=== PATIENT | female | born 1990 | race American Indian/Alaskan Native ===

== ENCOUNTER 2018-07-12 16:05 | Emergency (ER) | payer OTHER ==
[2018-07-12 16:15] VITALS: BP 167/108
[2018-07-12] MEDS ORDERED: IBUPROFEN PO ONE (16:38)
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
[2018-07-12] MEDS ORDERED: BOOSTRIX IM ONE (17:44)
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
== END 2018-07-12 18:18 | disposition home or self-care (01) ==
LOC: ED 16:05
DX: S39.012A Strain of muscle, fascia and tendon of lower back, initial encounter (principal); S46.911A Strain of unspecified muscle, fascia and tendon at shoulder and upper arm level, right arm, initial encounter; S66.911A Strain of unspecified muscle, fascia and tendon at wrist and hand level, right hand, initial encounter; S50.11XA Contusion of right forearm, initial encounter; I10 Essential (primary) hypertension; J45.909 Unspecified asthma, uncomplicated; E11.9 Type 2 diabetes mellitus without complications; Z86.2 Personal history of diseases of the blood and blood-forming organs and certain disorders involving the immune mechanism; Z90.89 Acquired absence of other organs; Z88.5 Allergy status to narcotic agent; Z88.0 Allergy status to penicillin; V89.2XXA Person injured in unspecified motor-vehicle accident, traffic, initial encounter; Y93.89 Activity, other specified; Y92.488 Other paved roadways as the place of occurrence of the external cause; Y99.8 Other external cause status
CPT/HCPCS: 72100; 90471; 90715; 99283

== ENCOUNTER 2019-09-18 01:37 | Emergency (ER) | payer OTHER, BC ==
--- NOTE | 2019-09-18 02:32 | XRay Report ---
CHEST 1 VIEW 09/18/2019 2:20 AM INDICATION / CLINICAL INFORMATION: Chest Pain. COMPARISON: None available. FINDINGS: SUPPORT DEVICES: None. HEART / MEDIASTINUM: No significant abnormality. LUNGS / PLEURA: No significant pulmonary or pleural abnormality. No pneumothorax. ADDITIONAL FINDINGS: No significant additional findings. IMPRESSION: 1. No acute findings. Signer Name: Yaritza Maya MD Signed: 09/18/2019 2:28 AM Workstation Name: [id number]
[2019-09-18] MEDS ORDERED: ASPIRIN 325 MG TAB PO ONE (03:59)
[2019-09-18 04:34] LABS: Hematocrit 36.4 % (30.3-42.9); Hemoglobin 11.4 gm/dl (10.1-14.3); Mean Corpuscular HGB Conc 31 % (30-34); Mean Corpuscular Volume 73 fl (79-97); Platelet Count 470 K/mm3 (140-440); Red Blood Count 4.99 M/mm3 (3.65-5.03); Red Cell Distribution Width 19.1 % (13.2-15.2)
[2019-09-18 05:00] LABS: Alanine Aminotransferase 11 units/L (7-56); Albumin 4.3 g/dL (3.9-5); BUN/Creatinine Ratio 23; Blood Urea Nitrogen 16 mg/dL (7-17); Calcium 9.8 mg/dL (8.4-10.2); Hemolysis Index 10
[2019-09-18 05:47] LABS: Basophils % (Manual) 0 % (0.0-1.8); Target Cells Rare; Total Cells Counted 100
[2019-09-18 05:48] LABS: Anisocytosis Few; Burr Cells Rare; Ovalocytes Rare; Platelet Estimate Consistent w Auto; Spherocytes Rare
--- NOTE | 2019-09-18 06:08 | Emergency Department Report ---
ED Chest Pain HPI - General Chief Complaint: Chest Pain Stated Complaint: SOB,SORENESS IN CHEST AND SHOULDER Source: patient Mode of arrival: Ambulatory Limitations: No Limitations - History of Present Illness Initial Comments: Patient is a 29-year-old -[place] female with a history of uan-dcapymo-dkodgjtak diabetes, hypertension and morbid obesity who presents to the ED with complaint of acute onset persistent constant left upper chest wall pain that radiates to the left arm and left shoulder for 12 hours. Patient states that she took anxiety medicine at home prior to arrival and now her pain is well controlled. Patient denies shortness of breath, nausea, vomiting, dizziness, syncope, seizures, headache, sore throat, abdominal pain, diaphoresis, palpitations, change in vision, heavy lifting, traumatic fall or cough. MD Complaint: chest pain (left sided), other (left arm and shoulder pain) -: Sudden, hour(s) (12) Onset: during rest, during exertion, awoke with symptoms Pain Location: left chest Pain Radiation: LUE Severity: mild Severity scale (0 -10): 2 Quality: tightness, sharp Consistency: intermittent Improves With: nothing Worsens With: nothing re: denies: nausea, vomting, diaphoresis, dyspnea, sense of impending doom Other Symptoms: denies: cough, fever, syncope, rash, acid taste in mouth, leg swelling, palpitations, burping Treatments Prior to Arrival: none Aspirin use within the Past 7 Days: (0) No - Related Data On Oral Contraceptives: No Home Medications Medication Instructions Recorded Confirmed Last Taken Norethindrone [Jolivette] 1 tab PO DAILY 11/04/13 11/04/13 11/02/13 13:00 Previous Rx's Medication Instructions Recorded Last Taken Type Ferrous Gluconate [Fergon] 325 mg PO BID #60 tablet 11/04/13 Unknown Rx Cyclobenzaprine [Flexeril] 10 mg PO QHS PRN #10 tablet 07/12/18 Unknown Rx Ibuprofen [Motrin 600 MG tab] 600 mg PO Q8H PRN #20 tablet 09/18/19 Unknown Rx hydrOXYzine PAMOATE [Vistaril] 25 mg PO Q6HR PRN #30 capsule 09/18/19 Unknown Rx Allergies Allergy/AdvReac Type Severity Reaction Status Date / Time codeine Allergy Hives Verified 11/03/13 12:45 Penicillins Allergy Hives Verified 11/03/13 12:44 Heart Score - HEART Score History: Slightly suspicious EKG: Normal Age: < 45 Risk factors: 1-2 risk factors Troponin: < normal limit HEART Score: 1 - Critical Actions Critical Actions: 0-3 pts:0.9-1.7%risk of adverse cardiac event.Candidate for discharge ED Review of Systems ROS: Stated complaint: SOB,SORENESS IN CHEST AND SHOULDER Other details as noted in HPI Constitutional: denies: chills, fever Eyes: denies: eye pain, eye discharge, vision change ENT: denies: ear pain, throat pain Respiratory: denies: cough, shortness of breath, wheezing Cardiovascular: chest pain (left sided chest pain). denies: palpitations Endocrine: no symptoms reported Gastrointestinal: denies: abdominal pain, nausea, diarrhea Genitourinary: denies: urgency, dysuria, discharge Musculoskeletal: arthralgia (left arm). denies: back pain, joint swelling Skin: denies: rash, lesions Neurological: denies: headache, weakness, paresthesias Psychiatric: denies: anxiety, depression Hematological/Lymphatic: denies: easy bleeding, easy bruising ED Past Medical Hx - Past Medical History Previous Medical History?: Yes Hx Hypertension: Yes Hx Congestive Heart Failure: No Hx Diabetes: Yes Hx Asthma: Yes Hx COPD: No Additional medical history: anemia - Surgical History Past Surgical History?: Yes Additional Surgical History: tonsillectomy - Social History Smoking Status: Never Smoker Substance Use Type: None - Medications Home Medications: Home Medications Medication Instructions Recorded Confirmed Last Taken Type Ferrous Gluconate [Fergon] 325 mg PO BID #60 tablet 11/04/13 Unknown Rx Norethindrone [Jolivette] 1 tab PO DAILY 11/04/13 11/04/13 11/02/13 13:00 History Cyclobenzaprine [Flexeril] 10 mg PO QHS PRN #10 tablet 07/12/18 Unknown Rx Ibuprofen [Motrin 600 MG tab] 600 mg PO Q8H PRN #20 tablet 09/18/19 Unknown Rx hydrOXYzine PAMOATE [Vistaril] 25 mg PO Q6HR PRN #30 capsule 09/18/19 Unknown Rx ED Physical Exam - General Limitations: No Limitations General appearance: alert, in no apparent distress - Head Head exam: Present: atraumatic, normocephalic, normal inspection - Eye Eye exam: Present: normal appearance, PERRL, EOMI Pupils: Present: normal accommodation - ENT ENT exam: Present: normal exam, normal orophraynx, mucous membranes moist, TM's normal bilaterally, normal external ear exam - Neck Neck exam: Present: normal inspection, full ROM. Absent: tenderness, lymphadenopathy - Respiratory Respiratory exam: Present: normal lung sounds bilaterally, chest wall tenderness (Palpable reproducible mild left upper chest wall tenderness). Absent: respiratory distress, wheezes, rales, rhonchi, accessory muscle use, decreased breath sounds, prolonged expiratory - Cardiovascular Cardiovascular Exam: Present: regular rate, normal rhythm, normal heart sounds. Absent: systolic murmur, diastolic murmur, rubs, gallop - GI/Abdominal GI/Abdominal exam: Present: soft, normal bowel sounds. Absent: distended, tend erness, guarding, rebound, hyperactive bowel sounds, hypoactive bowel sounds, organomegaly - Extremities Exam Extremities exam: Present: normal inspection, full ROM, normal capillary refill - Back Exam Back exam: Present: normal inspection, full ROM. Absent: tenderness, CVA tenderness (R), CVA tenderness (L), muscle spasm, paraspinal tenderness - Neurological Exam Neurological exam: Present: alert, oriented X3, CN II-XII intact, normal gait, reflexes normal - Psychiatric Psychiatric exam: Present: normal affect, normal mood - Skin Skin exam: Present: warm, dry, intact, normal color. Absent: rash ED Course Vital Signs 09/18/19 01:45 Temperature 97.9 F Pulse Rate 92 H Respiratory 18 Rate Blood Pressure 144/99 O2 Sat by Pulse 97 Oximetry KEVIN score - Kevin Score Age > 65: (0) No Aspirin use within the Past 7 Days: (0) No 3 or more CAD Risk Factors: (0) No 2 or more Angina events in past 24 hrs: (0) No Known CAD with more than 50% Stenosis: (0) No Elevated Cardiac Markers: (0) No ST Deviation Greater than 0.5mm: (0) No KEVIN Score: 0 ED Medical Decision Making - Lab Data Result diagrams: 09/18/19 04:07 09/18/19 04:07 - EKG Data EKG shows normal: sinus rhythm Rate: normal - EKG Data Interpretation: normal EKG - Radiology Data Radiology results: report reviewed, image reviewed Findings [facility] [address] [place] [address] XRay Report Signed Patient: TRISTEN HERNANDEZ MR#: [id number] : 1990 Acct:[id number] Age/Sex: 29 / F ADM Date: 09/18/19 Loc: ED Attending Dr: Ordering Physician: ALEIDA BECKETT MD Date of Service: 09/18/19 Procedure(s): XR chest 1V ap Accession Number(s): [id number] cc: ALEIDA BECKETT MD Fluoro Time In Minutes: CHEST 1 VIEW 09/18/2019 2:20 AM INDICATION / CLINICAL INFORMATION: Chest Pain. COMPARISON: None available. FINDINGS: SUPPORT DEVICES: None. HEART / MEDIASTINUM: No significant abnormality. LUNGS / PLEURA: No significant pulmonary or pleural abnormality. No pneumothorax. ADDITIONAL FINDINGS: No significant additional findings. IMPRESSION: 1. No acute findings. Signer Name: Yaritza Maya MD Signed: 09/18/2019 2:28 AM Workstation Name: [id number] Transcribed By: DT Dictated By: Rahat Maya MD Electronically Authenticated By: Rahat Maya MD Signed Date/Time: 09/18/19227 DD/ 8 TD/TT: - Medical Decision Making This is a 29-year-old female with a history of hypertension and psd-nnubzdv-kczzhgcmr diabetes and morbid obesity who presented to the ED with complaint of acute onset persistent left upper chest wall pain that radiates to the left arm. In the ED, patient is alert and oriented x3 and is not in distress. The EKG shows normal sinus rhythm with no ST or T wave abnormalities. Chest x-ray shows no acute cardiopulmonary abnormalities or pneumonitis. All lab test results were reviewed and are all nonactionable including the initial and repeat troponin levels. The patient's heart score is 1, and the patient is PERC negative per Wells criteria. The d-dimer level is normal. Patient was treated in the ED with aspirin. On reevaluation, patient's pain is well controlled medication. Patient symptoms are unlikely to be coronary artery disease associated based on the results and physical exam findings. Patient will discharge home and advised to follow-up with her primary care physician in 3 to 5 days for reevaluation. Patient was advised to return to the ED immediately if symptoms get worse. - Differential Diagnosis CAD; PE; Pneumonia; Muscle strain; Anxiety Critical care attestation.: If time is entered above; I have spent that time in minutes in the direct care of this critically ill patient, excluding procedure time. ED Disposition Clinical Impression: Anxiety as acute reaction to exceptional stress, Acute nonspecific chest pain with low risk of coronary artery disease Muscle strain of chest wall Qualifiers: Encounter type: initial encounter Qualified Code(s): S29.011A - Strain of muscle and tendon of front wall of thorax, initial encounter Disposition: TO HOME OR SELFCARE Is pt being admited?: No Does the pt Need Aspirin: No Condition: Stable Instructions: Chest Pain (ED), Muscle Strain (ED), Costochondritis (ED), Anxiety (ED) Additional Instructions: Take medications with food, drink plenty of fluids and follow up with your Primary Care Physician in 7-10 days for reevaluation. Return to the ED immediately if symptoms get worse. Prescriptions: Ibuprofen [Motrin 600 MG tab] 600 mg PO Q8H PRN #20 tablet PRN Reason: Pain hydrOXYzine PAMOATE [Vistaril] 25 mg PO Q6HR PRN #30 capsule PRN Reason: Anxiety Referrals: [facility] [Provider Group] - 3-5 Days Time of Disposition: 06:11 Print Language: ROMANIAN
[2019-09-18 06:33] VITALS: BP 138/97
== END 2019-09-18 06:32 | disposition home or self-care (01) ==
LOC: ED 01:37
DX: S29.011A Strain of muscle and tendon of front wall of thorax, initial encounter (principal); F41.9 Anxiety disorder, unspecified; I25.10 Atherosclerotic heart disease of native coronary artery without angina pectoris; I10 Essential (primary) hypertension; E11.9 Type 2 diabetes mellitus without complications; J45.909 Unspecified asthma, uncomplicated; Z79.899 Other long term (current) drug therapy; Z88.0 Allergy status to penicillin; Z88.8 Allergy status to other drugs, medicaments and biological substances; X58.XXXA Exposure to other specified factors, initial encounter; Y93.89 Activity, other specified; Y92.89 Other specified places as the place of occurrence of the external cause; Y99.8 Other external cause status
CPT/HCPCS: 36415; 71045; 80053; 84484; 85007; 85025; 85379; 93005; 93010